=== PATIENT | male | born 1965 | race Caucasian/White ===

== ENCOUNTER 2018-08-25 16:17 | Observation (INO) | payer OTHER ==
[~2018-08-25] VITALS: Ht 182.9 cm; Wt 86.0 kg
[2018-08-25] MEDS ORDERED: LORazepam 1MG TABLET PO ONE (17:00)
[2018-08-25 17:06] LABS: BASOPHILS # (AUTO) 0.02 x10^3/uL (0-0.1); BASOPHILS % (AUTO) 0 % (0-1); EOSINOPHILS # (AUTO) 0.01 x10^3/uL (0-0.4); EOSINOPHILS % (AUTO) 0 % (1-7); LYMPHOCYTES # (AUTO) 2.12 x10^3/uL (1-3.4); LYMPHOCYTES % (AUTO) 17 % (22-44); MD NO; MEAN CORPUSCULAR HEMOGLOBIN 31.2 pg (27.5-34.5); MEAN CORPUSCULAR HGB CONC 34.6 g/dL (33.2-36.2); MEAN CORPUSCULAR VOLUME 90.4 fL (81-97); MEAN PLATELET VOLUME 7.9 fL (7.4-10.4); MONOCYTES # (AUTO) 0.48 x10^3/uL (0.2-0.8); MONOCYTES % (AUTO) 4 % (2-9); NEUTROPHILS # (AUTO) 10.08 x10^3/uL (1.8-6.8); NEUTROPHILS % (AUTO) 79 % (42-75); PLATELET COUNT 294 x10^3/uL (130-400); RED BLOOD COUNT 6.01 x10^6/uL (4.38-5.82); RED CELL DISTRIBUTION WIDTH 13.6 % (9.4-14.8)
[2018-08-25 17:17] LABS: ANION GAP 17 mmol/L (5-15); CALCIUM 8.5 mg/dL (8.5-10.1); CHLORIDE 101 mmol/L (98-107)
[2018-08-25 17:20] LABS: ALANINE AMINOTRANSFERASE 50 U/L (12-78); ALKALINE PHOSPHATASE 81 U/L (45-117); BILIRUBIN,TOTAL 1.1 mg/dL (0.2-1.0); CREATININE 0.87 mg/dL (0.7-1.3); SALICYLATE LEVEL 2.7 mg/dL (2.8-20.0); TOTAL PROTEIN 8.1 g/dL (6.4-8.2)
[2018-08-25 17:22] LABS: ACETAMINOPHEN < 2 mcg/mL (10-30)
[2018-08-25] MEDS ORDERED: PLEASE ENTER HEIGHT AND WEIGHT MC SCH (17:30)
[2018-08-25 17:49] LABS: AMPHETAMINE SCREEN, URINE Negative (Negative); BARBITURATE SCREEN, URINE Negative (Negative); BENZODIAZEPINE SCREEN, URINE Negative (Negative); CANNABINOID SCREEN, URINE Negative (Negative); COCAINE SCREEN, URINE Negative (Negative); METHADONE SCREEN, URINE Negative (Negative); OPIATE SCREEN, URINE Negative (Negative)
[2018-08-25 17:54] LABS: MICROSCOPIC INDICATED
[2018-08-25] MEDS ORDERED: LORazepam 1MG TABLET ONE ×2 (17:56→22:03)
[2018-08-25 18:05] LABS: CULTURE INDICATED? NO
[2018-08-25] MEDS ORDERED: DIPHENHYDRAMINE 50 MG/ML, 1ML IM ONE (19:00)
[2018-08-25] MEDS: PLEASE ENTER ALLERGIES MC SCH (22:04)
[2018-08-25] MEDS: LORazepam 1MG TABLET PO PRN (22:09)
[2018-08-25] MEDS ORDERED: LORazepam 1MG TABLET PO PRN (23:00)
[2018-08-25] MEDS ORDERED: POLYETHYLENE GLYCOL 17 GM PACKET PO PRN (23:00)
[2018-08-26] VITALS (7 sets, daily range): BP systolic 123–153; BP diastolic 74–88
[2018-08-26] MEDS: ZOLPIDEM 5MG TABLET PO PRN ×2 (00:27→20:50)
[2018-08-26] MEDS: PLEASE ENTER ALLERGIES MC SCH ×2 (02:20→08:50)
[2018-08-26] MEDS: LORazepam 1MG TABLET PO PRN ×2 (07:13→20:50)
[2018-08-26] MEDS ORDERED: LORazepam 2 MG/ML, 1ML IM PRN ×2 (11:30→12:00)
[2018-08-26] MEDS ORDERED: LORazepam 2 MG/ML, 1ML IM ONE (11:30)
[2018-08-26] MEDS: PROPRANOLOL 20 MG TABLET PO SCH ×2 (13:35→18:23)
[2018-08-26] MEDS: ACETAMINOPHEN 325 MG TABLET PO PRN (20:50)
[2018-08-26] MEDS: MAGNESIUM OXIDE 400 MG TABLET PO SCH (20:50)
[2018-08-27 01:55] VITALS: BP 97/61
[2018-08-27] MEDS: PROPRANOLOL 20 MG TABLET PO SCH ×2 (08:15→17:27)
[2018-08-27] MEDS: MAGNESIUM OXIDE 400 MG TABLET PO SCH ×2 (08:15→20:47)
[2018-08-27] MEDS: MULTIVITAMIN 1 TABLET PO SCH (08:15)
[2018-08-27] MEDS: THIAMINE 100MG TABLET PO SCH (08:15)
[2018-08-27] MEDS: FOLIC ACID 1 MG TABLET PO SCH (08:15)
[2018-08-27 08:21] VITALS: BP 126/80
[2018-08-27] MEDS: ACETAMINOPHEN 325 MG TABLET PO PRN (08:28)
[2018-08-27 17:26] VITALS: BP 115/72
[2018-08-27 19:55] VITALS: BP 113/78
[2018-08-27] MEDS: ZOLPIDEM 5MG TABLET PO PRN (20:50)
[2018-08-28] MEDS: PROPRANOLOL 20 MG TABLET PO SCH ×2 (06:08→18:06)
[2018-08-28 07:50] VITALS: BP 119/75
[2018-08-28] MEDS: FOLIC ACID 1 MG TABLET PO SCH (07:52)
[2018-08-28] MEDS: THIAMINE 100MG TABLET PO SCH (07:52)
[2018-08-28] MEDS: MAGNESIUM OXIDE 400 MG TABLET PO SCH ×2 (07:52→20:13)
[2018-08-28] MEDS: MULTIVITAMIN 1 TABLET PO SCH (07:52)
[2018-08-28 18:06] VITALS: BP 110/69
[2018-08-28 19:47] VITALS: BP 126/90
[2018-08-28] MEDS: ZOLPIDEM 5MG TABLET PO PRN (20:13)
[2018-08-29 07:22] VITALS: BP 108/74
[2018-08-29] MEDS ORDERED: PROPRANOLOL 20 MG TABLET PO SCH (08:00)
[2018-08-29] MEDS: MAGNESIUM OXIDE 400 MG TABLET PO SCH (08:21)
[2018-08-29] MEDS: MULTIVITAMIN 1 TABLET PO SCH (08:21)
[2018-08-29] MEDS: THIAMINE 100MG TABLET PO SCH (08:21)
[2018-08-29] MEDS: FOLIC ACID 1 MG TABLET PO SCH (08:21)
[2018-08-29] MEDS ORDERED: MAGN400T50 PO (10:05)
[2018-08-29] MEDS ORDERED: MULT1TAB60 PO (10:05)
[2018-08-29] MEDS ORDERED: FOLI-17 PO (10:05)
[2018-08-29] MEDS ORDERED: PROP20TA PO (10:05)
[2018-08-29] MEDS ORDERED: THIA100T67 PO (10:05)
[2018-08-29] MEDS ORDERED: NICO-487 TD (10:07)
== END 2018-08-29 12:10 | disposition home or self-care (01) ==
LOC: ED 17:07 → EDIP 22:01 → 2N 08-26 00:16
PROVIDERS: ADMIT Hospitalist; ATTEND Hospitalist
DX: F32.9 Major depressive disorder, single episode, unspecified (principal); R45.851 Suicidal ideations; F10.229 Alcohol dependence with intoxication, unspecified; F17.200 Nicotine dependence, unspecified, uncomplicated; I45.81 Long QT syndrome; Z79.899 Other long term (current) drug therapy
CPT/HCPCS: 36415; 80053; 80307; 80329; 81001; 85025; 93005; 96372; 99285; G0378; J1200; J2060; G0480

== ENCOUNTER 2019-12-11 07:36 | Inpatient (IN) | payer MEDICAID ==
[~2019-12-11] VITALS: Ht 180.3 cm; Wt 82.7 kg
[~2019-12-11 07:36] MED LIST: FOLI-17 PO; MAGN400T50 PO; MULT1TAB60 PO; NICO-487 TD; PROP20TA PO; THIA100T67 PO
[2019-12-11] MEDS ORDERED: ONDANSETRON 2MG/ML, 2ML ONE ×2 (07:55→07:57)
[2019-12-11] MEDS ORDERED: LORazepam 2 MG/ML, 1ML ONE (07:57)
--- NOTE | 2019-12-11 08:25 | NUR ---
MEDEICATED PER EMAR
[2019-12-11] MEDS ORDERED: ONDANSETRON 2MG/ML, 2ML IVPush ONE (08:30)
[2019-12-11] MEDS ORDERED: THIAMINE 100 MG in SODIUM CHLORIDE 0.9% 50 ML IVPB ONE (08:30)
[2019-12-11] MEDS ORDERED: LORazepam 2 MG/ML, 1ML IVPush ONE (08:30)
[2019-12-11] MEDS ORDERED: SODIUM CHLORIDE 0.9% 1,000ML IVBOLUS ONE (08:30)
[2019-12-11 09:15] LABS: BASOPHILS # (AUTO) 0.04 x10^3/uL (0-0.1); BASOPHILS % (AUTO) 0 % (0-1); EOSINOPHILS % (AUTO) 0 % (1-7); LYMPHOCYTES # (AUTO) 1.84 x10^3/uL (1-3.4); LYMPHOCYTES % (AUTO) 16 % (22-44); MD NO; MEAN CORPUSCULAR HEMOGLOBIN 32.7 pg (27.5-34.5); MEAN CORPUSCULAR HGB CONC 34.7 g/dL (33.2-36.2); MEAN CORPUSCULAR VOLUME 94.2 fL (81-97); MEAN PLATELET VOLUME 8.2 fL (7.4-10.4); MONOCYTES # (AUTO) 0.67 x10^3/uL (0.2-0.8); MONOCYTES % (AUTO) 6 % (2-9); NEUTROPHILS # (AUTO) 8.83 x10^3/uL (1.8-6.8); NEUTROPHILS % (AUTO) 78 % (42-75); PLATELET COUNT 243 x10^3/uL (130-400); RED BLOOD COUNT 5.42 x10^6/uL (4.38-5.82); RED CELL DISTRIBUTION WIDTH 16.9 % (9.4-14.8)
[2019-12-11 09:46] LABS: ALBUMIN 3.4 g/dL (3.4-5.0); CALCIUM 7.6 mg/dL (8.5-10.1)
--- NOTE | 2019-12-11 09:47 | NUR ---
SEE REPEAT CIWA ASSESSMENT (PATIENT NOW WITH MINIMAL CIWA SCORE/HUNGRY/AMBULATING W/OUT DIFFICULTY)
[2019-12-11 09:50] LABS: ALANINE AMINOTRANSFERASE 57 U/L (12-78); ALKALINE PHOSPHATASE 143 U/L (45-117); BILIRUBIN,TOTAL 1.2 mg/dL (0.2-1.0); CREATININE 1.04 mg/dL (0.7-1.3); TOTAL PROTEIN 7.5 g/dL (6.4-8.2)
[2019-12-11 09:51] LABS: CHLORIDE 94 mmol/L (98-107)
--- NOTE | 2019-12-11 09:51 | NUR ---
Called lab to expedite chemistry lab results-electronic test technician to post shortly
[2019-12-11 09:52] LABS: ANION GAP 21 mmol/L (5-15)
[2019-12-11] MEDS ORDERED: POTASSIUM CHLORIDE 40 MEQ in LACTATED RINGERS 1,000 ML IV ONE (10:00)
[2019-12-11] MEDS ORDERED: POTASSIUM CHLORIDE 20 MEQ TAB.ER.PRT ONE ×2 (10:05→12:04)
[2019-12-11] MEDS ORDERED: MAALOX/HYOSCYAMINE/LIDOCAINE 45 ML BTL ONE (10:11)
[2019-12-11] MEDS ORDERED: LORazepam 1MG TABLET ONE (10:11)
--- NOTE | 2019-12-11 10:14 | NUR ---
Medicated per EMAR (PO GI COCKTAIL, ATIVAN, 40 MEQ OF POTASSIUM) ALSO PROVIDED WITH BREAKFAST TRAY 40MEQ IN LR ORDERED FROM PHARMACY DR. BOUCHER (HOSPITALIST AT BEDSIDE)
[2019-12-11] MEDS ORDERED: POTASSIUM CHLORIDE 20 MEQ TAB.ER.PRT PO ONE (10:15)
--- NOTE | 2019-12-11 10:15 | NUR ---
POC CLARIFIED WITH DR. BOUCHER: HE WANTS AN ADDITIONAL 40MEQ OF PO K TO BE ADMINITERED, TO KEEP LR W/ K INFUSING AND START NS W/ K ONCE LR COMPLETE CASSANDRA CONSULTANT ALSO ASKED TO REPLETE MAG (HYPOKALEMIA)-PROVIDER CONSIDERING
[2019-12-11] MEDS ORDERED: NS + 20MEQ KCL 1,000 ML IV SCH (10:16)
[2019-12-11] MEDS ORDERED: MAALOX/HYOSCYAMINE/LIDOCAINE 45 ML BTL PO ONE ×2 (10:30)
[2019-12-11] MEDS ORDERED: ONDANSETRON 2MG/ML, 2ML IVPush PRN (10:30)
[2019-12-11] MEDS ORDERED: LORazepam 2 MG/ML, 1ML IV PRN (10:30)
[2019-12-11] MEDS ORDERED: CHLORDIAZEPOXIDE 25 MG CAPSULE PO PRN ×2 (10:30)
[2019-12-11] MEDS: POTASSIUM CHLORIDE 20 MEQ TAB.ER.PRT PO ONE ×2 (10:30→12:10)
[2019-12-11] MEDS ORDERED: LORazepam 1MG TABLET PO ONE (10:30)
[2019-12-11] MEDS ORDERED: ENOXAPARIN 40 MG/0.4 ML ONE (12:03)
[2019-12-11] MEDS ORDERED: CHLORDIAZEPOXIDE 25 MG CAPSULE ONE (12:04)
[2019-12-11] MEDS: ENOXAPARIN 40 MG/0.4 ML SQ SCH (12:10)
--- NOTE | 2019-12-11 13:14 | NUR ---
Moved to hospital bed Ate lunch Patient reports withdrawal rated at 2/10 (now able to ambulate to restroom) Given information on [facility] (detox post-admission)
[2019-12-11] MEDS ORDERED: MAGNESIUM SULFATE PMX 2GM/50ML 50 ML ONE (13:59)
[2019-12-11] MEDS ORDERED: PANTOPRAZOLE 40 MG IV ONE (13:59)
[2019-12-11] MEDS ORDERED: MAGNESIUM SULFATE PMX 2GM/50ML 50 ML IV ONE (14:00)
[2019-12-11] MEDS: PANTOPRAZOLE 40 MG IV IVPush SCH (14:15)
[2019-12-11] MEDS ORDERED: NS + 20MEQ KCL 1,000 ML IV ONE (14:27)
[2019-12-11 15:50] VITALS: BP 130/79
[2019-12-11] MEDS ORDERED: SERT50TA PO (16:20)
[2019-12-11] MEDS: CHLORDIAZEPOXIDE 10 MG CAPSULE PO PRN (16:45)
[2019-12-11] MEDS: NS + 20MEQ KCL 1,000 ML IV SCH (17:06)
[2019-12-11 19:18] VITALS: BP 117/71
[2019-12-11] MEDS: SERTRALINE 50MG TABLET PO SCH (19:25)
[2019-12-11] MEDS: CHLORDIAZEPOXIDE 25 MG CAPSULE PO PRN (19:26)
[2019-12-12 01:12] VITALS: BP 134/80
[2019-12-12] MEDS: NS + 20MEQ KCL 1,000 ML IV SCH (01:17)
[2019-12-12 06:28] LABS: ANION GAP 5 mmol/L (5-15); CALCIUM 7.3 mg/dL (8.5-10.1); CHLORIDE 102 mmol/L (98-107); CREATININE 0.83 mg/dL (0.7-1.3)
[2019-12-12 06:44] LABS: BASOPHILS # (AUTO) 0.03 x10^3/uL (0-0.1); BASOPHILS % (AUTO) 0 % (0-1); EOSINOPHILS # (AUTO) 0.02 x10^3/uL (0-0.4); EOSINOPHILS % (AUTO) 0 % (1-7); LYMPHOCYTES # (AUTO) 2.04 x10^3/uL (1-3.4); LYMPHOCYTES % (AUTO) 20 % (22-44); MD SCAN; MEAN CORPUSCULAR HEMOGLOBIN 32.7 pg (27.5-34.5); MEAN CORPUSCULAR HGB CONC 34.5 g/dL (33.2-36.2); MEAN CORPUSCULAR VOLUME 94.6 fL (81-97); MEAN PLATELET VOLUME 7.9 fL (7.4-10.4); MONOCYTES # (AUTO) 0.48 x10^3/uL (0.2-0.8); MONOCYTES % (AUTO) 5 % (2-9); NEUTROPHILS # (AUTO) 7.75 x10^3/uL (1.8-6.8); NEUTROPHILS % (AUTO) 75 % (42-75); PLATELET COUNT 157 x10^3/uL (130-400); RED CELL DISTRIBUTION WIDTH 16.9 % (9.4-14.8)
[2019-12-12] MEDS ORDERED: POTASSIUM CHLORIDE 40 MEQ in SODIUM CHLORIDE 0.9% 500 ML IV ONE (07:00)
[2019-12-12] MEDS ORDERED: MAGNESIUM SULFATE PMX 2GM/50ML 50 ML IV ONE (07:00)
[2019-12-12 07:25] VITALS: BP 134/83
[2019-12-12] MEDS ORDERED: PANTOPRAZOLE 40 MG IV IVPush SCH (07:30)
[2019-12-12] MEDS: PANTOPRAZOLE 40 MG IV IVPush SCH (07:41)
[2019-12-12] MEDS: FOLIC ACID 1 MG TABLET PO SCH (08:36)
[2019-12-12] MEDS: SERTRALINE 50MG TABLET PO SCH (08:36)
[2019-12-12] MEDS: THIAMINE 100MG TABLET PO SCH (08:36)
[2019-12-12] MEDS: MULTIVITAMINS/MINERALS TABLET PO SCH (08:36)
[2019-12-12] MEDS: MAGNESIUM OXIDE 400 MG TABLET PO SCH ×2 (08:36→20:08)
[2019-12-12] MEDS: POTASSIUM CHLORIDE 20 MEQ TAB.ER.PRT PO SCH ×2 (08:36→16:20)
[2019-12-12] MEDS: CHLORDIAZEPOXIDE 10 MG CAPSULE PO PRN ×2 (08:40→14:13)
[2019-12-12] MEDS: ENOXAPARIN 40 MG/0.4 ML SQ SCH (12:02)
[2019-12-12 14:00] VITALS: BP 119/77
[2019-12-12 19:24] VITALS: BP 124/82
[2019-12-12] MEDS: CHLORDIAZEPOXIDE 25 MG CAPSULE PO PRN (20:09)
[2019-12-12] MEDS: ACETAMINOPHEN 325 MG TABLET PO PRN (20:10)
[2019-12-13 02:27] VITALS: BP 136/85
[2019-12-13] MEDS: CHLORDIAZEPOXIDE 10 MG CAPSULE PO PRN ×3 (02:33→19:51)
[2019-12-13 06:19] VITALS: BP 121/70
[2019-12-13 06:26] LABS: ALBUMIN 2.3 g/dL (3.4-5.0); ANION GAP 2 mmol/L (5-15); CALCIUM 7.6 mg/dL (8.5-10.1); CHLORIDE 103 mmol/L (98-107)
[2019-12-13 06:27] LABS: BASOPHILS # (AUTO) 0.03 x10^3/uL (0-0.1); BASOPHILS % (AUTO) 0 % (0-1); EOSINOPHILS # (AUTO) 0.09 x10^3/uL (0-0.4); EOSINOPHILS % (AUTO) 1 % (1-7); LYMPHOCYTES # (AUTO) 1.67 x10^3/uL (1-3.4); LYMPHOCYTES % (AUTO) 20 % (22-44); MD NO; MEAN CORPUSCULAR HEMOGLOBIN 32.6 pg (27.5-34.5); MEAN CORPUSCULAR HGB CONC 34.6 g/dL (33.2-36.2); MEAN CORPUSCULAR VOLUME 94.2 fL (81-97); MEAN PLATELET VOLUME 8.5 fL (7.4-10.4); MONOCYTES # (AUTO) 0.39 x10^3/uL (0.2-0.8); MONOCYTES % (AUTO) 5 % (2-9); NEUTROPHILS # (AUTO) 6.35 x10^3/uL (1.8-6.8); NEUTROPHILS % (AUTO) 74 % (42-75); PLATELET COUNT 151 x10^3/uL (130-400); RED BLOOD COUNT 3.79 x10^6/uL (4.38-5.82); RED CELL DISTRIBUTION WIDTH 16.9 % (9.4-14.8)
[2019-12-13 06:30] LABS: ALANINE AMINOTRANSFERASE 29 U/L (12-78); ALKALINE PHOSPHATASE 95 U/L (45-117); BILIRUBIN,TOTAL 0.8 mg/dL (0.2-1.0); CREATININE 0.62 mg/dL (0.7-1.3); TOTAL PROTEIN 5.5 g/dL (6.4-8.2)
[2019-12-13] MEDS ORDERED: POTASSIUM CHLORIDE 40 MEQ in SODIUM CHLORIDE 0.9% 500 ML IV ONE (07:00)
[2019-12-13] MEDS: SERTRALINE 50MG TABLET PO SCH (07:45)
[2019-12-13] MEDS: MULTIVITAMINS/MINERALS TABLET PO SCH (07:45)
[2019-12-13] MEDS: MAGNESIUM OXIDE 400 MG TABLET PO SCH ×2 (07:45→19:51)
[2019-12-13] MEDS: POTASSIUM CHLORIDE 20 MEQ TAB.ER.PRT PO SCH ×2 (07:45→16:29)
[2019-12-13] MEDS: FOLIC ACID 1 MG TABLET PO SCH (07:45)
[2019-12-13] MEDS: THIAMINE 100MG TABLET PO SCH (07:45)
[2019-12-13 09:57] LABS: INTERNATIONAL NORMALIZED RATIO 0.89 (0.93-1.1)
[2019-12-13 10:34] LABS: PROTHROMBIN TIME 9.4 Seconds (9.6-11.5)
[2019-12-13 13:43] VITALS: BP 118/76
[2019-12-13 19:49] VITALS: BP 137/85
[2019-12-13] MEDS: ACETAMINOPHEN 325 MG TABLET PO PRN (19:51)
[2019-12-14 01:32] VITALS: BP 146/89
[2019-12-14 06:14] LABS: BASOPHILS # (AUTO) 0.04 x10^3/uL (0-0.1); BASOPHILS % (AUTO) 0 % (0-1); EOSINOPHILS # (AUTO) 0.07 x10^3/uL (0-0.4); EOSINOPHILS % (AUTO) 1 % (1-7); LYMPHOCYTES # (AUTO) 1.71 x10^3/uL (1-3.4); LYMPHOCYTES % (AUTO) 20 % (22-44); MD NO; MEAN CORPUSCULAR HEMOGLOBIN 33.1 pg (27.5-34.5); MEAN CORPUSCULAR HGB CONC 34.7 g/dL (33.2-36.2); MEAN CORPUSCULAR VOLUME 95.2 fL (81-97); MEAN PLATELET VOLUME 8.4 fL (7.4-10.4); MONOCYTES # (AUTO) 0.51 x10^3/uL (0.2-0.8); MONOCYTES % (AUTO) 6 % (2-9); NEUTROPHILS # (AUTO) 6.25 x10^3/uL (1.8-6.8); NEUTROPHILS % (AUTO) 73 % (42-75); PLATELET COUNT 173 x10^3/uL (130-400); RED BLOOD COUNT 3.94 x10^6/uL (4.38-5.82); RED CELL DISTRIBUTION WIDTH 17.3 % (9.4-14.8)
[2019-12-14 06:15] LABS: ALBUMIN 2.4 g/dL (3.4-5.0); ANION GAP 5 mmol/L (5-15); CALCIUM 8.2 mg/dL (8.5-10.1); CHLORIDE 104 mmol/L (98-107)
[2019-12-14 06:21] LABS: ALANINE AMINOTRANSFERASE 29 U/L (12-78); ALKALINE PHOSPHATASE 95 U/L (45-117); BILIRUBIN,TOTAL 0.5 mg/dL (0.2-1.0); TOTAL PROTEIN 6.1 g/dL (6.4-8.2)
[2019-12-14 08:02] VITALS: BP 129/81
[2019-12-14] MEDS: MULTIVITAMINS/MINERALS TABLET PO SCH (08:06)
[2019-12-14] MEDS: POTASSIUM CHLORIDE 20 MEQ TAB.ER.PRT PO SCH ×2 (08:06→16:25)
[2019-12-14] MEDS: FOLIC ACID 1 MG TABLET PO SCH (08:07)
[2019-12-14] MEDS: SERTRALINE 50MG TABLET PO SCH (08:07)
[2019-12-14] MEDS: MAGNESIUM OXIDE 400 MG TABLET PO SCH ×2 (08:07→19:56)
[2019-12-14] MEDS: THIAMINE 100MG TABLET PO SCH (08:07)
[2019-12-14] MEDS: SERTRALINE 100MG TABLET PO SCH (09:44)
[2019-12-14 13:55] VITALS: BP 128/74
[2019-12-14 19:48] VITALS: BP 138/83
[2019-12-14] MEDS: ACETAMINOPHEN 325 MG TABLET PO PRN (19:56)
[2019-12-15 02:08] VITALS: BP 148/90
[2019-12-15 07:20] LABS: ANION GAP 4 mmol/L (5-15); CALCIUM 8.8 mg/dL (8.5-10.1); CHLORIDE 105 mmol/L (98-107)
[2019-12-15 07:28] LABS: BASOPHILS # (AUTO) 0.04 x10^3/uL (0-0.1); BASOPHILS % (AUTO) 1 % (0-1); EOSINOPHILS # (AUTO) 0.13 x10^3/uL (0-0.4); EOSINOPHILS % (AUTO) 2 % (1-7); LYMPHOCYTES # (AUTO) 1.98 x10^3/uL (1-3.4); LYMPHOCYTES % (AUTO) 25 % (22-44); MD NO; MEAN CORPUSCULAR HEMOGLOBIN 32.6 pg (27.5-34.5); MEAN CORPUSCULAR HGB CONC 34.2 g/dL (33.2-36.2); MEAN CORPUSCULAR VOLUME 95.4 fL (81-97); MEAN PLATELET VOLUME 8.2 fL (7.4-10.4); MONOCYTES % (AUTO) 9 % (2-9); NEUTROPHILS # (AUTO) 5.18 x10^3/uL (1.8-6.8); NEUTROPHILS % (AUTO) 65 % (42-75); PLATELET COUNT 214 x10^3/uL (130-400); RED BLOOD COUNT 4.19 x10^6/uL (4.38-5.82); RED CELL DISTRIBUTION WIDTH 17.9 % (9.4-14.8)
[2019-12-15] MEDS ORDERED: SERT100T32 PO (08:49)
[2019-12-15] MEDS ORDERED: MULT-484 PO (08:49)
[2019-12-15] MEDS ORDERED: THIA100T67 PO (08:49)
[2019-12-15 09:05] VITALS: BP 129/78
[2019-12-15] MEDS: FOLIC ACID 1 MG TABLET PO SCH (09:33)
[2019-12-15] MEDS: POTASSIUM CHLORIDE 20 MEQ TAB.ER.PRT PO SCH (09:33)
[2019-12-15] MEDS: SERTRALINE 100MG TABLET PO SCH (09:33)
[2019-12-15] MEDS: MULTIVITAMINS/MINERALS TABLET PO SCH (09:33)
[2019-12-15] MEDS: MAGNESIUM OXIDE 400 MG TABLET PO SCH (09:33)
[2019-12-15] MEDS: THIAMINE 100MG TABLET PO SCH (09:33)
== END 2019-12-15 10:00 | disposition home or self-care (01) | DRG 392 ==
LOC: ED 08:38 → EDIP 10:07 → 4EST 15:32 → DCLOUNGE 12-15 09:57
PROVIDERS: ADMIT Internal Medicine Infectious Disease; ATTEND Family Medicine
DX: K29.20 Alcoholic gastritis without bleeding (principal); F10.239 Alcohol dependence with withdrawal, unspecified; E87.2 Acidosis; E83.42 Hypomagnesemia; E86.0 Dehydration; E87.6 Hypokalemia; F32.9 Major depressive disorder, single episode, unspecified; F41.9 Anxiety disorder, unspecified; K52.9 Noninfective gastroenteritis and colitis, unspecified; K70.10 Alcoholic hepatitis without ascites; F17.210 Nicotine dependence, cigarettes, uncomplicated; Y90.6 Blood alcohol level of 120-199 mg/100 ml
CPT/HCPCS: 36415; 80048; 80053; 82140; 83690; 83735; 84100; 84132; 85025; 85610; 85730; 93005; 96374; 96375; G0378; J1650; J2405; J3411; J3480; C9113; J2060; J3475; J7030; J7040; J7120

== ENCOUNTER 2020-01-11 17:50 | Emergency (ER) | payer MEDICAID ==
[~2020-01-11] VITALS: Ht 180.3 cm; Wt 80.0 kg
[~2020-01-11 17:50] MED LIST changes: +MULT-484 PO; +SERT100T32 PO; +SERT50TA PO
[2020-01-11 17:55] VITALS: BP 134/83
--- NOTE | 2020-01-11 18:02 | NUR ---
THIS IS A 54 YO M BIB EMS FOR WHAT PT REPORTS A SEZIURE. HE STATES THAT HIS VISION HAS BEEN BLURRY ALL DAY TODAY AND THEN SUDDENLY HIS BODY STARTED SHAKING AND HE FELL TO THE GROUND AND LOST CONCIUSNESS. HE BELIEVES HE WAS OUT FOR A FEW MINUTES. PT REPORTS HIGH LEVELS OF STRESS AND ANXIETY DUE [place]. HX: ANXIETY AND DEPRESSION. PT ALSO HAS C/O INTERMITTENT PRODUCTIVE COUGHX2 WEEKS. PT IS TACHYCARDIC. OTHER VS WDL. CONNECTED TO ALL MONITORING. RESTING ON GURNEY W/ CALL LIGHT IN REACH. AWAITING ED EVAL.
--- NOTE | 2020-01-11 18:13 | NUR ---
SEIZURE PRECAUTIONS IN PLACE.
[2020-01-11] MEDS ORDERED: LORazepam 1MG TABLET ONE (18:29)
[2020-01-11] MEDS ORDERED: LORazepam 1MG TABLET PO ONE (18:30)
--- NOTE | 2020-01-11 18:31 | NUR ---
PT MEDICATED PER EMAR.
[2020-01-11 18:50] LABS: BASOPHILS # (AUTO) 0.04 x10^3/uL (0-0.1); BASOPHILS % (AUTO) 0 % (0-1); EOSINOPHILS # (AUTO) 0.01 x10^3/uL (0-0.4); EOSINOPHILS % (AUTO) 0 % (1-7); LYMPHOCYTES # (AUTO) 1.21 x10^3/uL (1-3.4); LYMPHOCYTES % (AUTO) 15 % (22-44); MD NO; MEAN CORPUSCULAR HEMOGLOBIN 33.6 pg (27.5-34.5); MEAN CORPUSCULAR HGB CONC 34.8 g/dL (33.2-36.2); MEAN CORPUSCULAR VOLUME 96.7 fL (81-97); MONOCYTES % (AUTO) 8 % (2-9); NEUTROPHILS # (AUTO) 6.37 x10^3/uL (1.8-6.8); NEUTROPHILS % (AUTO) 77 % (42-75); PLATELET COUNT 143 x10^3/uL (130-400); RED BLOOD COUNT 4.13 x10^6/uL (4.38-5.82); RED CELL DISTRIBUTION WIDTH 18.3 % (9.4-14.8)
[2020-01-11 18:58] LABS: ALANINE AMINOTRANSFERASE 60 U/L (12-78); ALBUMIN 2.8 g/dL (3.4-5.0); ANION GAP 7 mmol/L (5-15); CALCIUM 8.8 mg/dL (8.5-10.1); CHLORIDE 98 mmol/L (98-107)
[2020-01-11 19:02] LABS: ALKALINE PHOSPHATASE 111 U/L (45-117); BILIRUBIN,TOTAL 0.9 mg/dL (0.2-1.0); TOTAL PROTEIN 6.9 g/dL (6.4-8.2); TROPONIN I < 0.015 ng/mL (0.000-0.045)
[2020-01-11] MEDS ORDERED: POTASSIUM CHLORIDE 20 MEQ TAB.ER.PRT ONE (19:12)
--- NOTE | 2020-01-11 19:21 | NUR ---
medicated per emar- tolerating po fluids/solids ambulated with no dizziness/ataxia to d/c home shortly
[2020-01-11] MEDS ORDERED: POTASSIUM CHLORIDE 20 MEQ TAB.ER.PRT PO ONE (19:30)
== END 2020-01-11 19:37 | disposition home or self-care (01) ==
LOC: ED 18:28
DX: R55 Syncope and collapse (principal); E87.6 Hypokalemia; F10.239 Alcohol dependence with withdrawal, unspecified; F17.200 Nicotine dependence, unspecified, uncomplicated; Z90.49 Acquired absence of other specified parts of digestive tract; Y90.9 Presence of alcohol in blood, level not specified
CPT/HCPCS: 36415; 80053; 84484; 85025; 93005; 99284

== ENCOUNTER 2020-03-29 10:38 | Emergency (ER) | payer MEDICAID ==
[~2020-03-29] VITALS: Ht 182.9 cm; Wt 82.6 kg
[~2020-03-29 10:38] MED LIST changes: +MULT-449 PO; -MULT1TAB60 PO
--- NOTE | 2020-03-29 11:10 | NUR ---
ASSUMED CARE OF PT AT THIS TIME FROM LOBBY. AMBULATORY TO ROOM WITH STEAD GAIT. 54 Y/O M PRESENTS STATING "I NEED A REFILL FOR MY KEPPRA, I ONLY HAVE 2 PILLS LEFT AND I TRIED TO CALL MY PCP DR. AVILA SEVERAL TIMES AND HAVEN'T HEARD BACK I JUST NEED MY MEDICINE." DENIES ANY MEDICAL COMPLAINT, CP, SOB, ABD PAIN, N/V/D, FEVER, COUGH, SEIZURE ACTIVITY OR ANY RECENT TRAVEL. CONT PULSE OX, BP MONITORS IN PLACE. VSS. CALL LIGHT IN REACH. FALL PRECUATIONS IN PLACE. A&OX4. DR. PACHECO AT BEDSIDE. TO REFILL PT RX AND DISCHARGE PT.
[2020-03-29 11:17] VITALS: BP 133/88
[2020-03-29] MEDS ORDERED: LEVE500T53 PO (11:20)
[2020-03-29] MEDS ORDERED: SERT50TA PO (11:20)
--- NOTE | 2020-03-29 11:22 | NUR ---
AWAITING DISCHARGE PAPERS AND RX FROM [facility]
== END 2020-03-29 11:47 | disposition home or self-care (01) ==
LOC: ED 11:30
DX: R56.9 Unspecified convulsions (principal); F17.200 Nicotine dependence, unspecified, uncomplicated; Z76.0 Encounter for issue of repeat prescription
CPT/HCPCS: 99281

== ENCOUNTER 2020-04-22 18:14 | Emergency (ER) | payer MEDICAID ==
[~2020-04-22] VITALS: Ht 182.9 cm; Wt 82.8 kg
[~2020-04-22 18:14] MED LIST changes: +LEVE500T53 PO
[2020-04-22 18:24] VITALS: BP 164/102
== END 2020-04-22 18:55 | disposition home or self-care (01) ==
LOC: ED 18:33
DX: G40.909 Epilepsy, unspecified, not intractable, without status epilepticus (principal); F17.200 Nicotine dependence, unspecified, uncomplicated; Z76.0 Encounter for issue of repeat prescription; Z90.49 Acquired absence of other specified parts of digestive tract
CPT/HCPCS: 99281

== ENCOUNTER 2020-08-03 07:58 | Emergency (ER) | payer MEDICAID ==
[~2020-08-03] VITALS: Ht 182.9 cm; Wt 84.6 kg
[2020-08-03 08:01] VITALS: BP 164/94
== END 2020-08-03 09:03 ==
LOC: ED 08:57
DX: B34.9 Viral infection, unspecified (principal); Z20.828 Contact with and (suspected) exposure to other viral communicable diseases; M79.10 Myalgia, unspecified site
CPT/HCPCS: 36415; 87635; 99283

== ENCOUNTER 2020-09-19 13:35 | Emergency (ER) | payer MEDICAID ==
[~2020-09-19] VITALS: Ht 182.9 cm; Wt 83.0 kg
[~2020-09-19 13:35] MED LIST changes: -NICO-487 TD; +NICO-587 TD
[2020-09-19 14:04] LABS: BASOPHILS % (AUTO) 1 % (0-1); EOSINOPHILS % (AUTO) 0 % (1-7); LYMPHOCYTES % (AUTO) 23 % (22-44); MEAN CORPUSCULAR HEMOGLOBIN 33.7 pg (27.5-34.5); MEAN CORPUSCULAR HGB CONC 34.2 g/dL (33.2-36.2); MEAN PLATELET VOLUME 7.3 fL (7.4-10.4); MONOCYTES % (AUTO) 6 % (2-9); NEUTROPHILS % (AUTO) 71 % (42-75); PLATELET COUNT 157 x10^3/uL (130-400); RED BLOOD COUNT 4.67 x10^6/uL (4.38-5.82); RED CELL DISTRIBUTION WIDTH 14.4 % (9.4-14.8)
[2020-09-19 14:06] LABS: MD NO
[2020-09-19 14:16] LABS: ALANINE AMINOTRANSFERASE 56 U/L (12-78); ANION GAP 10 mmol/L (5-15); CALCIUM 8.4 mg/dL (8.5-10.1); CHLORIDE 103 mmol/L (98-107); CREATININE 0.83 mg/dL (0.7-1.3)
[2020-09-19 14:18] LABS: ALKALINE PHOSPHATASE 71 U/L (45-117); BILIRUBIN,TOTAL 0.9 mg/dL (0.2-1.0); TOTAL PROTEIN 7.9 g/dL (6.4-8.2)
--- NOTE | 2020-09-19 15:03 | NUR ---
LUMBER TRIPPER: PT AMBULATORY TO ROOM FROM LOBBY
[2020-09-19] MEDS ORDERED: LORazepam 1MG TABLET PO ONE (15:30)
[2020-09-19] MEDS ORDERED: LORazepam 1MG TABLET ONE (15:33)
--- NOTE | 2020-09-19 16:33 | NUR ---
Pt provided with food
[2020-09-19 17:15] VITALS: BP 145/77
== END 2020-09-19 17:17 | disposition home or self-care (01) ==
LOC: ED 16:56
DX: R56.9 Unspecified convulsions (principal); F41.1 Generalized anxiety disorder; E87.6 Hypokalemia; F32.9 Major depressive disorder, single episode, unspecified; F17.200 Nicotine dependence, unspecified, uncomplicated; Z90.49 Acquired absence of other specified parts of digestive tract
CPT/HCPCS: 36415; 80053; 83690; 85025; 99283